=== PATIENT | male | born 1955 | race Hispanic/Latino ===

== ENCOUNTER 2017-09-20 06:25 | Day surgery (SDC) | payer BC ==
[2017-09-20] MEDS ORDERED: Propofol 10 mg/ml Inj (20 ML) ONE (07:18)
[2017-09-20] MEDS ORDERED: Etomidate 20 mg/10ml Inj IV ONE (07:18)
[2017-09-20] MEDS ORDERED: Succinylcholine 200 mg/10 ml Inj IV ONE (07:21)
[2017-09-20] MEDS ORDERED: Phenylephrine 10 mg/ml Inj ONE (07:25)
[2017-09-20] MEDS ORDERED: Iohexol 240 (50 ml) ONE (07:26)
[2017-09-20] MEDS ORDERED: Lidocaine 2% Jelly (Uro-Jet) ONE (07:26)
[2017-09-20] MEDS ORDERED: cefTRIAXone (Rocephin) 1 gm Inj ONE (07:26)
[2017-09-20 07:27] VITALS: BMI 43.7
[2017-09-20] MEDS ORDERED: HYDROmorphone 1 mg/ml ISec IVP PRN (09:15)
[2017-09-20] MEDS ORDERED: Sodium Chloride 0.9% 1,000 ML IV SCH (09:15)
--- NOTE | 2017-09-20 10:21 | RAD ---
PROCEDURE: Fluoroscopy up to 1 hr. HISTORY: R/O OBSTRUCTION COMPARISON: None TECHNIQUE: Standard protocol for this study/examination. FINDINGS: Total fluoroscopic time (continuous mode) utilized during the procedure 35.1 (seconds). Total exam DLP: (mGy) 25.54 IMPRESSION: Less than 1 hr fluoroscopic time utilized during performance of the procedure.
[2017-09-20 11:02] VITALS: PULSE 58; RESP 18; TEMP 97.4
[2017-09-20 11:28] VITALS: BP 167/91; O2SAT 97
--- NOTE | 2017-09-20 14:16 | OP ---
PROCEDURE DATE: 09/20/2017 PREOPERATIVE DIAGNOSIS Bladder cancer. POSTOPERATIVE DIAGNOSIS: Bladder cancer. PROCEDURES: Cystoscopy, excision and fulguration of multiple bladder tumors, left ureteral manipulation, bilateral retrograde pyelograms. ATTENDING SURGEON: Syd Bejarano MD. ANESTHESIA: General. SPECIMENS: Bladder tumor from the dome and from the left floor, sent to Pathology separately. DRAINS: None. COMPLICATIONS: None. OPERATIVE FINDINGS After informed consent was obtained, the patient was taken to Operating Room, placed on Operating Table. Anesthesia was administered. The patient was then placed in the dorsal lithotomy position and prepped and draped in usual sterile fashion. The patient received intravenous antibiotics prior to start of the procedure. At this point, a 22-Tamazight cystoscope was placed in the patient's urethra and advanced proximally under direct vision until the bladder was entered. A full survey inspection of bladder was then performed with both 30 and 70 degrees lenses. There was a small area of tumor noted at the dome and approximately at the 1 o'clock position, there was a moderate amount of papillary growth noted on the left floor surrounding the left ureteral orifice. The right ureteral orifice appeared within normal limits. At this point, a cold cup forceps was passed. The tumor at the dome was then excised and sent to Pathology. The Bovie electrode was then passed and the excision sites were then cauterized along with an area of surrounding normal mucosa. At this point, attention was turned to the tumor surrounding the left ureteral orifice. A sensor wire was obtained. It was passed under direct vision through the cystoscope and guided into the left ureteral orifice. The wire was then advanced proximally under fluoroscopic guidance until it was coiled in the upper collecting system. With the wire in place, a cold cup forceps was then passed, multiple pieces of tumor just adjacent to the orifice were then removed and sent to Pathology as specimen. The Bovie electrode was then passed and the biopsy sites were then cauterized along with any area of papillary growth surrounding the orifice, which was identified with the wire in place. After all visible tumor had been removed, the cold cup forceps and Bovie were removed and a 6-Tamazight open-ended ureteral catheter was passed through the scope over the wire and into the left ureter. When inside the left ureteral orifice, the guidewire was then removed. Contrast was then instilled into the system for a left retrograde pyelogram. The left retrograde pyelogram appeared grossly within normal limits. There was no evidence of any filling defects in the ureter. The ureter was of normal caliber. There was no hydronephrosis or upper tract filling defect noted. The system was noted to drain promptly and contrast was followed coming down the ureter into the bladder. Again, there did not appear to be any gross filling defects in the distal ureter. At this point, the open-ended ureteral catheter was guided into the right ureteral orifice and right retrograde pyelogram was performed. The right retrograde pyelogram also appeared grossly within normal limits. There was no evidence of filling defects or obstruction. The films were submitted to Radiology for interpretation. At this point, a final inspection was made. There was complete hemostasis from the resection sites and there was no visible untreated tumor. At this point, the bladder was drained. The cystoscope was removed. Exam of the urethra was within normal limits. The prostate was moderately enlarged and somewhat occlusive appearing. There were no other urethral lesions or tumor noted. At this point, the procedure was complete. The patient was returned to the supine position. He tolerated the procedure well and was taken to the recovery room in awake and stable condition. Syd Bejarano MD
== END 2017-09-20 11:45 | disposition home or self-care (01) ==
LOC: SDS 06:25
PROVIDERS: ATTEND Urology
DX: C67.9 Malignant neoplasm of bladder, unspecified (principal); N30.80 Other cystitis without hematuria
CPT/HCPCS: 52005; 52234; 74420; 88305; C1758; C1769; J0330; J0696; J1170; J2370; J2704; J2765; J3010; J7040; J7120; Q9966